=== PATIENT | female | born 1960 | race Caucasian/White ===

== ENCOUNTER → 2016-12-20 | Outpatient (CLI) | payer MEDICARE, BC ==
--- NOTE | 2016-12-20 23:19 | MR ---
EXAMINATION TYPE: MR angio head wo con DATE OF EXAM: 12/20/2016 COMPARISON: NONE HISTORY: Cerebral infarction TECHNIQUE: Time of flight images focusing on the [place] were performed without contrast. FINDINGS: There is arterial flow in the anterior middle and posterior cerebral arteries. There is art erial flow in the vertebrobasilar artery system. Right vertebral artery is larger than the left. The right posterior cerebral artery appears to fill entirely through the right posterior communicatin g artery. I see no evidence of aneurysm or neovascularity. There is no mass effect. There is no evide nce of stenosis. 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 Negative MR angiogram of the brain.
== END | disposition home or self-care (01) ==
LOC: RADMRIMAIN 19:49
PROVIDERS: ATTEND Psychiatry & Neurology Neurology
DX: I63.9 Cerebral infarction, unspecified (principal); H53.131 Sudden visual loss, right eye
CPT/HCPCS: 70544; 70551

== ENCOUNTER → 2016-12-20 | Outpatient (CLI) | payer MEDICARE, BC ==
--- NOTE | 2016-12-21 10:58 | MR ---
MR brain without contrast HISTORY: Cerebral infarction Multiplanar multisequence imaging through the brain and correlated to MRA brain 12/20/2016 There is no restricted diffusion to suggest subacute ischemia. There is no hemorrhage or hydrocephalu s. Focal area of cortical increased signal on inversion recovery and T2-weighted sequences in the rig ht parietal lobe shows some focal encephalomalacia compatible with a focus of chronic infarct. Scatte red hyperintensities are present within the deep white matter on inversion recovery and T2-weighted s equences. The corpus callosum, pituitary, cervical medullary junction, cerebellopontine angles are no rmal. There are normal vascular flow voids. The orbits show a symmetric appearance. Mild mucosal dise ase present within the ethmoid air cells. 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
== END | disposition home or self-care (01) ==
LOC: RADMRIMAIN 19:43
PROVIDERS: ATTEND Internal Medicine
DX: I63.9 Cerebral infarction, unspecified (principal); H53.131 Sudden visual loss, right eye
CPT/HCPCS: 70551

== ENCOUNTER → 2016-12-27 | Outpatient (CLI) | payer MEDICARE, BC ==
[2016-12-27 12:36] LABS: Non-African American GFR(MDRD) 52 (>60 ml/min/1.73 sqM)
== END | disposition home or self-care (01) ==
LOC: LABWHC1 11:46
PROVIDERS: ATTEND Psychiatry & Neurology Neurology
DX: I10 Essential (primary) hypertension (principal)
CPT/HCPCS: 36415; 82565

== ENCOUNTER → 2017-01-10 | Outpatient (CLI) | payer MEDICARE, BC ==
--- NOTE | 2017-01-10 15:45 | MR ---
EXAMINATION TYPE: MR angio neck wo/w con DATE OF EXAM: 01/10/2017 COMPARISON: MRA brain 12/20/2016 HISTORY: Cerebral infarction, unspecified CONTRAST: Standard multiplanar, multisequence MRI departmental protocol utilizing 20 mL intravenous MultiHance gadolinium contrast. TECHNIQUE: Multiplanar multiecho imaging is performed. Three-D reconstructed images are reviewed. FINDINGS: Common carotid arteries bifurcate normally into internal and external carotid arteries. Some slab rec onstruction defect is present. However, no suspicious stenosis is evident. No filling defects are terrance dent. No flow gaps are identified. Vertebral arteries are patent to the basilar artery. Right vertebral artery is slightly more prominen t than the left. Portions of the [place] of [place] as visualized appear normal. A2 segments appear unr emarkable. Middle cerebral artery branches appear normal. Posterior cerebral vasculature is unremarka ble. IMPRESSION: 1. Normal MRA neck. 2. Normal MRA [place]
== END ==
LOC: RADMRIMAIN 12:11
PROVIDERS: ATTEND Psychiatry & Neurology Neurology
DX: I63.9 Cerebral infarction, unspecified (principal); I10 Essential (primary) hypertension
CPT/HCPCS: 70549; A9577